=== PATIENT | male | born 1950 | race Caucasian/White ===

== ENCOUNTER 2019-10-15 22:02 | Inpatient (IN) | payer OTHER ==
[~2019-10-15] VITALS: Ht 185.4 cm; Wt 127.5 kg
[2019-10-15 23:16] VITALS: BP 150/82
[2019-10-16] MEDS ORDERED: ELIQUIS5 MG PO (00:41)
[2019-10-16] MEDS ORDERED: TOPROL XL50 MG PO (00:42)
[2019-10-16] MEDS ORDERED: DORYX MPC120 MG PO (00:44)
[2019-10-16 04:15] LABS: CALCIUM 7.5 mg/dL (8.5-10.1); CREATININE 1.1 mg/dL (0.7-1.3); POTASSIUM 4.2 mmol/L (3.5-5.1); TROPONIN-I 0.29 ng/mL (<0.06)
[2019-10-16 04:45] VITALS: BP 137/81
[2019-10-16 04:53] LABS: HEMATOCRIT 39.6 % (42.0-52.0); HEMOGLOBIN 12.8 gm/dL (14.0-18.0); MCH 26.8 pg (26.0-34.0); MCHC 32.2 g/dL (28.0-37.0); RBC 4.77 mil/uL (4.50-6.00); RDW 14.7 % (10.5-14.5); WBC 9.3 thou/uL (4.0-11.0)
--- NOTE | 2019-10-16 04:57 | NUR ---
PT IS A DIRECT ADMIT FROM [facility]. PT IS ADMITTED WITH AFIB RVR PT ARRIVED VIA EMS TO THE FLOOR. UPON ARIVAL, PT IS STABLE. NO SIGN OF DISTRESS NOTED IN PT. PT IS ALERT AND ORIENTED. ABLE TO ANSWER QUESTIONS. TIME STUDY OBSERVER NOTIFIED. PT IS SEEN BY TIME STUDY OBSERVER. ADMISSION ASSESSMENT AND EDUCATION, HISTORT COMPLETED WITH PT, DENIES ANY CHEST PAIN. PT IS STILL IN AFIB BUT WITN CONTROLLED RATE. CARDIZEM DRIP STARTED. PT IS STABLE. BLOOD SUGAR CHECKED. VITAL SIGNS STABLE. CONTINUE TO MONITOR PT, DENIES ANY FURTHER NEEDS AT THIS TIME.
[2019-10-16 07:01] LABS: CHOLESTEROL 97 mg/dL (<200); HDL CHOLESTEROL 24 mg/dL (>40); LDL CHOLESTEROL 47 mg/dL (<100); TRIGLYCERIDE 130 mg/dL (<150); VLDL 26 mg/dL (<40)
[2019-10-16 07:03] LABS: SERUM ASSESSMENT Clear
[2019-10-16 08:18] VITALS: BP 123/103
--- NOTE | 2019-10-16 08:32 | EKG ---
[facility] [place] [address] ELECTROCARDIOGRAM REPORT Name: MARICEL WOOD Room #: 209-P ADM IN M.R.#: [id number] Admission: 10/15/19 Attend Phys: Darrick Mccollum MD Discharge: Date of : 52 Report #: [id number] THIS REPORT FOR: cc: ROM - Daniela family physician/PCP ROM - No family physician/PCP Ciro Castellano MD ~ THIS REPORT FOR: //name// [facility] Test Date: 2019-10-16 Test Time: 07:13:11 Pat Name: MARICEL WOOD Department: Room: 209 Gender: M External Relations Director: Marnie XIAO : 1950 Requested By: Nery Waggoner Order Number: [id number] MD: Ciro Castellano Measurements Intervals [place] Rate: 74 P: VA: QRS: -7 QRSD: 102 T: 54 QT: 412 QTc: 457 Interpretive Statements Atrial fibrillation Anterior infarct, old No previous ECG available for comparison Electronically Signed On 10-16-2019 8:31:51 FOOD MANAGER by Ciro Castellano [email or web address] <ELECTRONICALLY SIGNED> By: Ciro Castellano MD [birth year]1931 2 2 Ciro Castellano MD /JORDY
[2019-10-16 12:04] VITALS: BP 139/50
--- NOTE | 2019-10-16 12:41 | 2DMMODE ---
[facility] [address] [place] [address] 2 D/M-MODE ECHOCARDIOGRAM Name: MARICEL WOOD Room #: 209-P ADM IN M.R.#: [id number] Admission: 10/15/19 Attend Phys: Darrick Mccollum MD Discharge: Date of : 52 Report #: [id number] THIS REPORT FOR: cc: FAM - No family physician/PCP FAM - No family physician/PCP Sreekanth Villegas MD ~ APPROVED REPORT Study performed: 10/16/2019 11:22:01 EXAM: Comprehensive 2D, Doppler, and color-flow Echocardiogram Patient Location: Echo lab Room #: 209 Status: routine BSA: 2.53 HR: 83 bpm BP: 123/103 mmHg Rhythm: Atrial Fibrillation Other Information Study Quality: Technically DifficultTechnically Limited Indications Diabetes Atrial Fibrillation Dyspnea Elevated Troponin Echo Enhancing Agent Indication: Endocardial border delineation Agent(s) / Amount(s) Used: Optison 3 cc 2D Dimensions IVSd: 12.97 (7-11mm) LVOT Diam: 22.71 (18-24mm) LVDd: 52.32 mm PWd: 12.88 (7-11mm) Ascending Ao: 32.81 (22-36mm) LVDs: 42.07 (25-40mm) Aortic Root: 37.31 mm Aortic Valve AoV Peak Gilbert.: 1.35 m/s AO Peak Gr.: 7.32 mmHg LVOT Max P.91 mmHg LVOT Max V: 0.85 m/s [facility] [address] [place] [address] 2 D/M-MODE ECHOCARDIOGRAM Name: MARICEL WOOD Room #: 209-P ADM IN M.R.#: [id number] Admission: 10/15/19 Attend Phys: Darrick Mccollum MD Discharge: Date of : 52 Report #: [id number] ENEDINA Vmax: 2.55 cm2 Pulmonary Valve PV Peak Gilbert.: 0.81 m/s PV Peak Gr.: 2.63 mmHg Left Ventricle The left ventricle is normal size. Mild concentric left ventricular hypertrophy. The left ventricular systolic function is normal. The left ventricular ejection fraction is within the normal range. LVEF is 50-55%. This study is not technically sufficient to allow evaluation of the LV diastolic function due to atrial fibrillation. Right Ventricle Right ventricle is at the upper limits of normal. The right ventricular systolic function is normal. Atria Left atrium is not well visualized. Right atrium is not well visualized. Aortic Valve The aortic valve is normal in structure. No aortic regurgitation is present. There is no aortic valvular stenosis. Mitral Valve The mitral valve is normal in structure. There is no mitral valve regurgitation noted. No evidence of mitral valve stenosis. Tricuspid Valve The tricuspid valve is normal in structure. There is no tricuspid valve regurgitation noted. Pulmonic Valve The pulmonary valve is normal in structure. There is no pulmonic valvular regurgitation. Great Vessels The aortic root is normal in size. The inferior vena cava is not well visualized. Pericardium There is no pericardial effusion. <Conclusion> The left ventricle is normal size. [facility] [address] [place] [address] 2 D/M-MODE ECHOCARDIOGRAM Name: MARICEL WOOD Room #: 209-P ADM IN M.R.#: [id number] Admission: 10/15/19 Attend Phys: Darrick Mccollum MD Discharge: Date of : 52 Report #: [id number] Mild concentric left ventricular hypertrophy. LVEF is 50-55%. Right ventricle is at the upper limits of normal. The aortic valve is normal in structure. The mitral valve is normal in structure. The tricuspid valve is normal in structure. The pulmonary valve is normal in structure. There is no pericardial effusion. <ELECTRONICALLY SIGNED> By: Sreekanth Villegas MD 10/16/19 1240 1240 [id number] Sreekanth Villegas MD /INF
[2019-10-16 16:47] VITALS: BP 119/66
--- NOTE | 2019-10-16 19:53 | NUR ---
ASSUMMED PT CARE AT APPROXIMATELY 0700. PT A&O X4. ASSESSMENT CHARTED. FALL PRECAUTIONS IN PLACE. PT DENIES HAVING CHEST PAIN. PT STATED HE BECOMES SOB ON EXERSION. O2 SAT STABLE. PT DENIES HAVING ACUTE PAIN. VITAL SIGNS STABLE. BLOOD SUGARS STABLE. CARDIAC STRESS TEST RESCHEDULED FOR TOMORROW DUE TO PT HAVING "A SIP" OF COFFEE. PT OFF CARDIZEM DRIP. PT HR STABLE. EDUCATED PT AND PT'S FAMILY ABOUT POC. PT AND PT'S FAMILY STATED UNDERSTANDING AND DENIED HAVING FURTHER QUESTIONS. PT AMBULATES STEADY. PT COMFORTABLE IN BED. PT DENIES HAVING FURTHER CONCERNS.
[2019-10-16 20:05] VITALS: BP 150/59
[2019-10-17] VITALS (7 sets, daily range): BP systolic 124–149; BP diastolic 63–89
[2019-10-17 01:07] LABS: GLYCOHEMOGLOBIN (HGB A1C) 8.2 % (4.8-5.6)
--- NOTE | 2019-10-17 05:03 | NUR ---
ASSUMED PT CARE AT 1900. PT IS ALERT AND ORIENTED. NO SIGN OF DISTRESS NOTED. PT IS LAYING IN BED COMFORTABLY. DENIES ANY PAIN. HEART RATE CONTROLLED BUT STILL IN AFIB. ASSESSMENT COMPLETED AND DOCUMENTED. CALL LIGHT WITHIN REACH. SCHEDULED MEDS ADMINISTERED TO PT. TOLERATED PO INTAKE. PT IS NPO AFTER MIDNIGHT FOR A SCHEDULED NUCLEAR STRESS TEST. VERBALIZED UNDERSTANDING. DENIES ANY FURTHER NEEDS AT THIS TIME.
--- NOTE | 2019-10-17 17:44 | NUR ---
ASSUMMED PT CARE AT APPROXIMATELY 0700. PT A&O X4. ASSESSMENT CHARTED. FALL PRECAUTIONS IN PLACE. PT DENIES HAVING CHEST PAIN. PT DENIES HAVING SOB. PT DENIES HAVING ACUTE PAIN. EDUCATED PT AND PT'S FAMILY ABOUT POC. PT AND PT'S FAMILY STATED UNDERSTANDING AND DENIED HAVING FURTHER CONCERS. PT HAD CARDIAC STRESS TEST TODAY. VITAL SIGNS STABLE. BLOOD SUGARS STABLE. PT AMBULATES STEADY. PT COMFORTABLE IN BED. PT DENIES HAVING FURTHER CONCERNS.
[2019-10-18 03:20] VITALS: BP 145/53
--- NOTE | 2019-10-18 05:30 | NUR ---
ASSUMED PT CARE AT 1900. PT IS ALERT AND ORIENTED WITH NO SIGN OF DISTRESS NOTED IN PT. PT IS RESTING COMFORTABLY CHAIR. CALL LIGHT WITHIN REACH. ASSESSMENT COMPLETED AND DOCUMENTED. SCHEUDLED MEDS ADMINISTERED TO PT. VITAL SIGNS STABLE. AFIB NOTED ON HEART RHYTHM. CONTINUE TO MONITOR PATIENT. DENIES ANY FURTHER NEEDS AT THIS TIME.
[2019-10-18 05:40] LABS: HEMATOCRIT 42.1 % (42.0-52.0); HEMOGLOBIN 13.5 gm/dL (14.0-18.0); MCH 26.4 pg (26.0-34.0); MCHC 32.1 g/dL (28.0-37.0); MCV 82.2 fL (80.0-100.0); RBC 5.12 mil/uL (4.50-6.00); RDW 14.7 % (10.5-14.5); WBC 6.3 thou/uL (4.0-11.0)
[2019-10-18 05:56] LABS: CALCIUM 8.5 mg/dL (8.5-10.1); POTASSIUM 4.2 mmol/L (3.5-5.1)
--- NOTE | 2019-10-18 08:11 | NUR ---
ASSUMED CARE OF PT AT SHIFT CHANGE, HIS FIRST CONCERN WAS HE DID'NT BELIEVE HIS INPUT/MATCHED HIS OUTPUT. PT ALSO STATES THAT HE FEELS LIKE HE'S URINATING MORE THAN HIS INPUT, AND FREQUENTLY.HE WAS CONCERNED ABOUT HIS WEIGHT DIFFERENCE DONE ON PRIOR SHIFT YET STATES ONE WAS DONE ON ASTANDING SCALE AND THE OTHER IN THE BED. IS A CAREGIVER HIMSELF. GOAL FOR TODAY IS TO GET THE REPORT BACK FROM YESTERDAY AND BE HEALTHY. SEE SEPARATE INTERVENTIONS FOR ASSESSMENTS. ENCOURAGED PT TO USE CALL LIGHT FOR ANY NEEDS. DENIES ANY NEEDS AT THIS TIME
[2019-10-18 08:20] VITALS: BP 141/74
[2019-10-18] MEDS ORDERED: ASPIR 8181 MG PO (08:55)
[2019-10-18 11:25] VITALS: BP 146/93
[2019-10-18 15:36] VITALS: BP 146/93
== END 2019-10-18 16:24 | disposition home or self-care (01) | DRG 308 ==
LOC: 2N 22:02 → ENTRNSPT 10-18 16:12 → 2N 10-18 16:24
PROVIDERS: Nurse Practitioner Family; ADMIT Hospitalist
DX: I48.91 Unspecified atrial fibrillation (principal); J18.9 Pneumonia, unspecified organism; E44.0 Moderate protein-calorie malnutrition; E11.9 Type 2 diabetes mellitus without complications; E66.01 Morbid (severe) obesity due to excess calories; Z88.6 Allergy status to analgesic agent; Z88.0 Allergy status to penicillin; Z68.37 Body mass index [BMI] 37.0-37.9, adult; Z82.49 Family history of ischemic heart disease and other diseases of the circulatory system; Z82.3 Family history of stroke; Z81.8 Family history of other mental and behavioral disorders; Z80.42 Family history of malignant neoplasm of prostate; Z79.82 Long term (current) use of aspirin; Z79.899 Other long term (current) drug therapy
CPT/HCPCS: 10081